=== PATIENT | female | born 1960 | race Caucasian/White ===

== ENCOUNTER → 2020-05-17 15:34 | Outpatient (CLI) | payer OTHER, SELFPAY ==
[2020-05-17] MEDS: COVID-19 VACC #1, MRNA(MOD) 100 MCG/0.5 ML VIAL IM (15:45)
== END ==
PROVIDERS: Visit Provider Internal Medicine
DX: Z23 Encounter for immunization (principal)
CPT/HCPCS: 0011A; 91301

== ENCOUNTER → 2020-06-14 14:22 | Outpatient (CLI) | payer OTHER, SELFPAY ==
[2020-06-14] MEDS: COVID-19 VACC #2, MRNA(MOD) 100 MCG/0.5 ML VIAL IM (14:28)
== END ==
PROVIDERS: Visit Provider Internal Medicine
DX: Z23 Encounter for immunization (principal)
CPT/HCPCS: 0012A; 91301

== ENCOUNTER → 2022-10-14 13:12 | Outpatient (CLI) | payer OTHER, SELFPAY ==
--- NOTE | 2022-10-14 | DI.MG.S_ITS ---
BILATERAL DIGITAL SCREENING MAMMOGRAM 3D/2D WITH CAD: 10/14/2022 CLINICAL: Baseline exam. Routine screening. No prior exams were available for comparison. Both breasts are heterogeneously dense, which may obscure small masses (category c / 51-75% glandular tissue). Current study was also evaluated with a Computer Aided Detection (CAD) system. No significant masses, calcifications, or other findings are seen in either breast. IMPRESSION: NEGATIVE There is no mammographic evidence of malignancy. A 1 year screening mammogram is recommended. Based on the Tyrer Cuzick model (a risk assessment model) the patient's lifetime risk is 9.0% and her 10 year risk is 4.2%. According to the ACR, ACS, and NCCN guidelines, an annual breast MRI exam along with mammogram is recommended if the patient's lifetime risk is 20% or greater. This exam was interpreted at Station ID: [id number]. NOTE: For mammograms, a report in lay terms will be sent to the patient. Approximately 15% of breast malignancies will not be visualized mammographically. In the management of a palpable breast mass, a negative mammogram must not discourage biopsy of a clinically suspicious lesion. Electronically Signed By: Abdullahi friend/michael:10/14/2022 13:46:21 letter sent: Normal Exam ACR BI-RADS Category 1: Negative [id number]
== END ==
PROVIDERS: PCP Family Medicine; Referring Provider Family Medicine; Visit Provider Family Medicine
DX: Z12.31 Encounter for screening mammogram for malignant neoplasm of breast (principal)
CPT/HCPCS: 77063; 77067

== ENCOUNTER 2022-10-31 09:48 | Day surgery (SDC) | payer OTHER, SELFPAY ==
--- NOTE | 2022-10-31 | PATH_ITS ---
[facility] Accession Number: [id number] No. of containers..03 Tissue . 01 Material submitted: . PART A: colon - DESCENDING POLYP PART B: colon - SIGMOID POLYPS PART C: rectum - RECTAL POLYP . 01 Diagnosis: A- COLON, DESCENDING, POLYP BIOPSY: - TUBULAR ADENOMA -- B-COLON, SIGMOID, POLYPS BIOPSIES: - ONE POLYP WITH TUBULO-VILLOUS ADENOMA, ONE HYPERPLASTIC POLYP, AND ONE FRAGMENT WITH FEATURES OF HYPERPLASTIC CHANGES -- C- COLON, RECTUM, POLYP BIOPSY: - TUBULO-VILLOUS ADENOMA TXN 11/06/2022 1349 Local . 01 Electronically signed: . Cale Rodriguez MD, Pathologist NPI- [id number] . 01 Gross description: . Part A: DESCENDING POLYP: Received in formalin is 1 fragment(s) of bynum, soft tissue measuring 0.3 x 0.3 x 0.1 cm submitted entirely in 1 cassette(s) Part B: SIGMOID POLYPS: Received in formalin is 3 fragment(s) of bynum, soft tissue measuring 1.0 x 0.4 x 0.2 cm to 0.4 x 0.3 x 0.2 cm submitted entirely in 1 cassette(s) Part C: RECTAL POLYP: Received in formalin is 2 fragment(s) of bynum, soft tissue measuring 0.6 x 0.4 x 0.4 cm to 0.5 x 0.4 x 0.4 cm submitted entirely in 1 cassette(s) /AAY 11/05/2022 0106 Local . 01 Pathologist provided ICD-10: Z12.11 . 01 CPT . 102833, 021689, 142563 Specimen Comment: A courtesy copy of this report has been sent to [phone] Performed at: 01 [facility] [address], [place], [place] [id number] MD William Venegas MD Phone: [phone]
[2022-10-31 10:02] VITALS: BMI 25.1
[2022-10-31 10:15] VITALS: BP 135/90; PULSE 86; RESP 16; TEMP 37.2; O2SAT 98
[2022-10-31] MEDS: LACTATED RINGERS 1,000 ML 42 ML IV (10:19)
--- NOTE | 2022-10-31 11:15 | PM.PREOP ---
Pre-operative Note COVID-19 COVID-19 status: Not tested Interval Note History & Physical reviewed/Exam performed by Physician: Yes Changes to H&P: No ASA Class (for procedural sedation): II
--- NOTE | 2022-10-31 11:21 | SUR.OPER ---
GLASSES IN LABELED CASE TO PACU WITH PATIENT
--- NOTE | 2022-10-31 11:50 | PM.OP.COLON ---
Operative Date/Time/Diagnoses Date of procedure: 10/31/22 Time of procedure: 11:51 Pre-op diagnosis: Rectal bleeding Post-op diagnosis: same Procedure & Clinicians Study performed: Colonoscopy Same procedure as scheduled: Yes Surgeon: Ezequiel Bruner Procedure Notes Procedure in detail: Surgeon: Ezequiel Bruner MD Anesthesia: Luda Gonzales [employer] Procedure: The patient was brought to the endoscopy suite, placed in left lateral decubitus position. The patient was connected to monitoring devices. A time-out was performed. Sedation was administered. Once the patient was adequately sedated, a digital rectal exam was performed and was normal. The scope was then inserted and advanced to the cecum where the appendiceal orifice was identified and photographed. The scope was then slowly withdrawn over greater than 6 minutes. The mucosa was thoroughly inspected. There was a 5 mm polyp in the descending colon removed with a cold snare. Were some persistent oozing from the polypectomy site and so a single 11 mm clip was applied with good effect. Next, 2 5 mm polyps were seen in the sigmoid colon and removed with cold snare. The scope was retroflexed in the rectum. A roughly 1 cm flat polyp was seen in the distal rectum with indistinct margins. The scope was straightened and polyp was removed with the cold snare. The scope was straightened and removed. The patient was awakened and brought to recovery. Scope withdrawal time: 17 minutes Sedation time: 26 minutes EBL: 5 mL Findings: 5 mm polyps in the descending colon, sigmoid colon and 1 cm polyp in the rectum Post-procedure Disposition: PACU
[2022-10-31 11:51] VITALS: BP 119/75; PULSE 64; RESP 14; TEMP 36.3; O2SAT 98
[2022-10-31 11:56] VITALS: BP 119/75; PULSE 64; RESP 14; O2SAT 98
[2022-10-31 12:02] VITALS: BP 125/82; PULSE 66; RESP 15; O2SAT 100
[2022-10-31 12:07] VITALS: BP 130/75; PULSE 61; RESP 14; TEMP 36.3; O2SAT 97
== END 2022-10-31 12:19 | disposition home or self-care (01) ==
PROVIDERS: PCP Family Medicine; Referring Provider Surgery; Visit Provider Surgery
PROC: 0DJD8ZZ Inspection of Lower Intestinal Tract, Via Natural or Artificial Opening Endoscopic (ICD-10-PCS; CPT 45378; principal; 2022-10-31 11:00)
DX: K62.5 Hemorrhage of anus and rectum (principal); D12.4 Benign neoplasm of descending colon; D12.5 Benign neoplasm of sigmoid colon; D12.8 Benign neoplasm of rectum
CPT/HCPCS: 45385

== ENCOUNTER → 2023-04-18 08:21 | Outpatient (CLI) | payer MEDICARE, OTHER, SELFPAY ==
[2023-04-18 09:09] LABS: Add Manual Diff / Slide Review NO; Basophils Absolute Auto 0 /uL (0-100); Basophils Percent Auto 0.6 % (0-2); Eosinophils Absolute Auto 300 /uL (0-450); Eosinophils Percent Auto 5.5 % (2-4); Hematocrit 39.5 % (36-46); Hemoglobin 13.2 g/dL (12.0-16.0); Lymphocytes Absolute Auto 1800 /uL (1100-4500); Lymphocytes Percent Auto 36.5 % (25-40); Mean Corpuscular HGB Conc 33.4 % (30-36); Mean Corpuscular Volume 86.8 fL (80-100); Monocytes Absolute Auto 400 /uL (0-900); Monocytes Percent Auto 8.3 % (3-14); Neutrophils Absolute Auto 2400 /uL (1500-7000); Neutrophils Percent Auto 49.1 % (50-75); Platelet Count 208 X10^3/uL (150-400); Red Blood Cell Count 4.55 X10^6/uL (4.0-5.2); White Blood Cell Count 4.9 X10^3/uL (4.5-11.0)
[2023-04-18 09:50] LABS: Vitamin D 25 Hydroxy (D3) 41.8 ng/mL (30.0-100.0)
[2023-04-18 10:03] LABS: TSH w/ Reflex to FT4 0.94 uIU/mL (0.47-4.68)
[2023-04-18 10:11] LABS: Alanine Aminotransferase 22 IU/L (<35); Albumin 4.2 g/dL (3.5-5.0); Albumin Globulin Ratio 1.4 (1.0-2.8); Alkaline Phosphatase 80 U/L (38-126); Aspartate Aminotransferase 29 IU/L (14-36); BUN Creatinine Ratio 23.7 (6-22); Bilirubin Total 0.7 mg/dL (0.2-1.3); Blood Urea Nitrogen 18 mg/dL (7-17); Calcium 9.4 mg/dL (8.4-10.2); Carbon Dioxide 27 mmol/L (22-32); Chloride 111 mmol/L (98-107); Cholesterol 221 mg/dL (140-199); Estimated Glomerular Filt Rate > 60 mL/min (>60); Glucose 113 mg/dL (80-110); HDL Cholesterol 72 mg/dL (40-60); HEMOLYSIS < 15 (0-50); LDL Cholesterol Calculated 127 mg/dL (<100); Potassium 4.7 mmol/L (3.4-5.1); Sodium 143 mmol/L (137-145); Total Protein 7.2 g/dL (6.3-8.2); Triglycerides 109 mg/dL (35-150)
[2023-04-18 10:15] LABS: High Sensitivity CRP - Cardiac 0.6 mg/L (1.0-3.0)
[2023-04-18 10:20] LABS: Hemoglobin A1C% w Est Avg Glu 5.7 % (4.0-6.0)
[2023-04-18 10:46] LABS: Ferritin 158 ng/mL (11-264)
== END ==
LOC: LAB 08:25
PROVIDERS: PCP Family Medicine; Referring Provider Family Medicine; Visit Provider Family Medicine
DX: Z13.228 Encounter for screening for other metabolic disorders (principal); E78.5 Hyperlipidemia, unspecified; R73.9 Hyperglycemia, unspecified; D64.9 Anemia, unspecified
CPT/HCPCS: 36415; 80053; 80061; 82306; 82728; 83036; 84443; 85025; 86140